=== PATIENT | female | born 1965 | race Two or more races ===

== ENCOUNTER 2017-04-19 11:14 | Outpatient (CLI) | payer BC | END 2017-04-19 12:52 | LOC: D.MAMMO 11:14 | DX: Z12.31 Encounter for screening mammogram for malignant neoplasm of breast (principal) ==

== ENCOUNTER → 2017-05-28 15:59 | Outpatient (CLI) | payer BC | END | disposition home or self-care (01) | LOC: D.MAMMO 08:30 | DX: R92.8 Other abnormal and inconclusive findings on diagnostic imaging of breast (principal) ==

== ENCOUNTER → 2017-08-16 10:40 | Outpatient (CLI) | payer MEDICAID | END | disposition home or self-care (01) | LOC: D.MRI 10:40 | DX: M54.16 Radiculopathy, lumbar region (principal) ==

== ENCOUNTER 2017-11-03 17:33 | Emergency (ER) | payer MEDICAID | END 2017-11-03 20:02 | disposition home or self-care (01) | LOC: D.ER 17:33 | DX: J11.1 Influenza due to unidentified influenza virus with other respiratory manifestations (principal); J20.9 Acute bronchitis, unspecified; E11.9 Type 2 diabetes mellitus without complications; I10 Essential (primary) hypertension ==

== ENCOUNTER → 2017-12-23 17:43 | Outpatient (CLI) | payer MEDICAID | END | disposition home or self-care (01) | LOC: D.MAMMO 14:30 | DX: R92.8 Other abnormal and inconclusive findings on diagnostic imaging of breast (principal) ==

== ENCOUNTER → 2018-06-27 19:00 | Outpatient (CLI) | payer MEDICAID | END | disposition home or self-care (01) | LOC: D.MAMMO 10:30 | DX: Z12.31 Encounter for screening mammogram for malignant neoplasm of breast (principal) ==

== ENCOUNTER 2019-10-05 05:38 | Day surgery (SDC) | payer MEDICAID ==
[~2019-10-05] VITALS: Ht 152.4 cm; Wt 111.4 kg
[2019-10-05] MEDS ORDERED: GLUCOTROL XL 1010 MG PO (06:19)
[2019-10-05] MEDS ORDERED: GLUCOPHAGE1000 MG PO (06:19)
[2019-10-05] MEDS ORDERED: LIPITOR20 MG PO (06:19)
[2019-10-05] MEDS ORDERED: HYDROCODON-ACE1 EAC2 PO (06:20)
[2019-10-05] MEDS ORDERED: ZANAFLEX4 MG PO (06:21)
[2019-10-05] MEDS ORDERED: DORZOLAMIDE-TIMOLOL (06:21)
[2019-10-05 06:22] LABS: HEMATOCRIT 38.3 % (36.0-48.0); HEMOGLOBIN 12.7 g/dL (12-16); MCH 31.1 pg (26.0-34.0); MCHC 33.2 g/dL (31.0-37.0); MCV 93.6 fL (80.0-100.0); MEAN PLATELET VOLUME 9.7 fL (7.4-10.4); RBC 4.09 10x6/uL (4.00-5.40); RDW 14.3 % (11.5-14.5)
[2019-10-05] MEDS ORDERED: NORVASC5 MG PO (06:22)
[2019-10-05] MEDS ORDERED: PIOGLITAZONE15 MG PO (06:22)
[2019-10-05] MEDS ORDERED: LISINOPRIL20 MG PO (06:23)
[2019-10-05] MEDS ORDERED: EFFEXOR XR75 MG PO (06:24)
[2019-10-05] MEDS ORDERED: BUPROPION XL300 MG PO (06:24)
[2019-10-05] MEDS ORDERED: XALATAN 0.0052.5 ML EACH EYE (06:25)
[2019-10-05] MEDS ORDERED: NEURONTIN800 MG PO (06:25)
[2019-10-05 06:28] VITALS: BP 107/78; Ht 152.4 cm; Wt 111.4 kg
[2019-10-05 06:51] LABS: ALBUMIN 3.3 g/dL (3.4-5.0); ALKALINE PHOSPHATASE 78 U/L (46-116); ALT (SGPT) 26 U/L (10-68); BILIRUBIN - TOTAL 0.44 mg/dL (0.2-1.3); CALC OSMOLALITY 278 mosm/kg (275-300); CALCIUM 8.7 mg/dL (8.5-10.1); CARBON DIOXIDE 27.9 mmol/L (21.0-32.0); CHLORIDE - SERUM 105 mmol/L (98-107); CREATININE - SERUM 0.8 mg/dL (0.6-1.3); GLUCOSE 101 mg/dL (74-106); POTASSIUM - SERUM 4.4 mmol/L (3.5-5.1); PROTEIN - SERUM 6.7 g/dL (6.4-8.2); SODIUM 140 mmol/L (136-145); UREA NITROGEN 12 mg/dL (7-18); eGFR NON AFRICAN AMERICAN 79 mL/min (90-120)
--- NOTE | 2019-10-05 09:15 | NUR ---
PT BS CHECKED AT THIS TIME, 68. PT DENIES FEELING ANY SYPTOMS OF HYPOGLYCEMIA, PT CURRENTLY TAKING IN ORANGE JUICE, AND CRACKERS. PT STATES THAT SHE WILL CONTINUE TO TAKE IN ORAL INTAKE AFTER LEAVING OPS.
--- NOTE | 2019-10-05 09:20 | NUR ---
PT IV REMOVED AT THIS TIME, INTACT, NO REDNESS OR SWELLING NOTED AT SITE. PT DC INSTRUCTIONS REVIEWED AT THIS TIME, PT VERBALIZES UNDERSTANDING.
--- NOTE | 2019-10-05 09:47 | NUR ---
PT LEAVING OPS AT THIS TIME VIA WC, NAD NOTED.
--- NOTE | 2019-10-05 11:11 | OP ---
PATIENT NAME: KASSIE WEISS MEDICAL RECORD: [id number] :63 LOCATION:D[facility] ADMISSION DATE: SURGEON: GRAZYNA COTTRELL DO DATE OF OPERATION: 10/05/2019 PROCEDURE: Colonoscopy with biopsies and polypectomy. INDICATION FOR PROCEDURE: Chronic diarrhea. SCOPE: Olympus video pediatric colonoscope. MEDICATIONS: Propofol 400 mg IV per anesthesia. WITHDRAWAL TIME: 22 minutes. ESTIMATED BLOOD LOSS: Minimal. COMPLICATIONS: None. FINDINGS: Informed consent was given. The patient was made comfortable with the above medication. After reaching an adequate level of sedation by slow IV push, the patient was placed on the left side. A digital rectal examination was performed and it was normal. The endoscope was then advanced under direct visualization through the rectum to the cecum, confirmed by the presence of the appendiceal orifice and ileocecal valve. The endoscope was then advanced into the terminal ileum. The endoscope was slowly withdrawn. Mucosa was carefully examined. The prep quality was good. There was a single benign-appearing flat polyp located in the ascending colon. The polyp was removed using hot forceps in a piecemeal fashion with some cauterization performed as well. There was evidence of moderate diverticulosis involving the entire colon. There was no evidence of diverticulitis. Random biopsies were taken with cold forceps to submit for histopathology and to rule out the presence of microscopic colitis. Retroflexion was performed in the rectum with a normal appearing rectal wall. The endoscope was withdrawn from the patient. The patient tolerated the procedure well and there were no complications. IMPRESSION: 1. Benign appearing ascending polyp as described above, removed using hot forceps. 2. Moderate diverticulosis of the entire colon. PLAN AND RECOMMENDATIONS: 1. Discharge home when recovery parameters are met. 2. Follow up biopsy specimen results. 3. We will provide a prescription for cholestyramine for ongoing chronic diarrhea. We will also provide dicyclomine 20 mg tablet as needed for loose stools or abdominal pain or cramping. 4. Recall colonoscopy in 3-5 years based on the polyp that was removed today. TRANSINT:[id number] Voice Confirmation ID: [id number] DOCUMENT ID: [id number] OPERATIVE REPORT [id number] KASSIE WEISS GRAZYNA COTTRELL DO at 1111 CC: [id number] DICTATION DATE: 10/05/19 0848 ENGINEERING LIBRARIAN: 10/05/19 0904 [facility] [place] 10/05/19 [facility] [address] [place] [address]
== END 2019-10-05 09:47 | disposition home or self-care (01) ==
LOC: D.OPS 05:38
PROVIDERS: Anesthesiology; ATTEND Internal Medicine Gastroenterology
DX: K52.9 Noninfective gastroenteritis and colitis, unspecified (principal); E11.9 Type 2 diabetes mellitus without complications; Z79.84 Long term (current) use of oral hypoglycemic drugs; R03.0 Elevated blood-pressure reading, without diagnosis of hypertension